=== PATIENT | male | born 1950 | race Caucasian/White ===

== ENCOUNTER 2016-11-22 11:23 | Emergency (ER) | payer BC ==
[2016-11-22 11:27] VITALS: RESP 18; TEMP 98.6
--- NOTE | 2016-11-22 11:49 | C.PDOC ---
History Of Present Illness 66 y/o male presents to the ED for evaluation of right nose bleed that started shortly prior to arrival while he was at work. At this time patient reports bleeding has resolved. Patient denies any trauma, dizziness, shortness of breath , nose pain, nasal congestion, fevers, or other complaints. Time Seen by Provider: 11/22/16 11:25 Chief Complaint (Nursing): ENT Problem History Per: Patient History/Exam Limitations: no limitations Onset/Duration Of Symptoms: Mins, Gradual, Persistent Current Symptoms Are (Timing): Gone Recent travel outside of the [place]: No Past Medical History Reviewed: Historical Data, Nursing Documentation, Vital Signs Vital Signs: Last Vital Signs Temp 98.6 F 11/22/16 11:25 Pulse 57 L 11/22/16 12:25 Resp 18 11/22/16 12:25 BP 149/76 11/22/16 12:25 Pulse Ox 100 11/22/16 12:25 - Medical History PMH: HTN, Hypercholesterolemia Surgical History: CABG Family History: States: No Known Family Hx - Social History Hx Tobacco Use: Yes (former smoker) Hx Alcohol Use: Yes (social) Hx Substance Use: No - Immunization History Hx Tetanus Toxoid Vaccination: No Hx Influenza Vaccination: Yes (04/2016) Hx Pneumococcal Vaccination: No Review Of Systems Except As Marked, All Systems Reviewed And Found Negative. Constitutional: Negative for: Fever ENT: Positive for: Other (right nose bleed). Negative for: Nose Pain, Nose Congestion Respiratory: Negative for: Shortness of Breath Neurological: Negative for: Dizziness Physical Exam - Physical Exam Appears: Non-toxic, No Acute Distress Skin: Normal Color, Warm, Dry Head: Atraumatic, Normacephalic Nose: Normal, No Epistaxis, No Tenderness Oral Mucosa: Moist Throat: Normal Neck: Normal ROM Chest: Symmetrical Cardiovascular: Rhythm Regular Respiratory: Normal Breath Sounds, No Rales, No Rhonchi, No Wheezing Extremity: Normal ROM Neurological/Psych: Oriented x3, Normal Speech, Normal Cognition ED Course And Treatment O2 Sat by Pulse Oximetry: 98 (ra) Pulse Ox Interpretation: Normal Progress Note: On re-evaluation no active nasal bleeding. Discharged in stable condition Reassessment Condition: Improved Disposition Counseled Patient/Family Regarding: Need For Followup - Disposition Referrals: Armani Street MD [Staff Provider] - Disposition: HOME/ ROUTINE Disposition Time: 12:30 Condition: GOOD Additional Instructions: Follow up with EMT for further evaluation Instructions: Nosebleed (ED) Forms: Work Excuse Print Language: POLISH - POA Present On Arrival: None - Clinical Impression Clinical Impression: Right-sided nosebleed - PA / [employer] / Resident Statement MD/DO has reviewed & agrees with the documentation as recorded. - Scribe Statement The provider has reviewed the documentation as recorded by the Scribe (Michelle Powell) All medical record entries made by the Scribe were at my direction and personally dictated by me. I have reviewed the chart and agree that the record accurately reflects my personal performance of the history, physical exam, medical decision making, and the department course for this patient. I have also personally directed, reviewed, and agree with the discharge instructions and disposition.
[2016-11-22 12:29] VITALS: BP 149/76; PULSE 57
[2016-11-22 17:20] VITALS: O2SAT 98
== END 2016-11-22 12:30 | disposition home or self-care (01) ==
LOC: C.ER 11:23
DX: R04.0 Epistaxis (principal)